=== PATIENT | male | born 1960 | race Caucasian/White ===

== ENCOUNTER 2023-07-29 11:37 | Inpatient (IN) | payer MEDICARE, OTHER ==
[~2023-07-29] VITALS: Ht 160 cm; Wt 79.8 kg
[2023-07-29 12:47] LABS: BASOPHILS % (AUTO) 0.1 % (0.0-2.0); EOSINOPHILS # (AUTO) 0.1 K/uL (0.0-0.7); EOSINOPHILS % (AUTO) 1.7 % (0.0-7.0); HEMATOCRIT 44.8 % (36.7-47.1); HEMOGLOBIN 15.3 g/dL (12.5-16.3); LYMPHOCYTES % (AUTO) 38.4 % (20.5-51.5); MEAN CORPUSCULAR HEMOGLOBIN 31.8 uug (23.8-33.4); MEAN CORPUSCULAR HGB CONC 34 g/dL (32.5-36.3); MEAN CORPUSCULAR VOLUME 93.2 fL (73.0-96.2); MONOCYTES # (AUTO) 0.8 K/uL (0.1-1.30); MONOCYTES % (AUTO) 10.7 % (0.0-11.0); NEUTROPHILS # (AUTO) 3.8 K/uL (1.8-8.9); NEUTROPHILS % (AUTO) 49.1 % (38.5-71.5); PLATELET COUNT (AUTO) 124 K/uL (152-348); RED CELL DISTRIBUTION WIDTH 14.1 % (12.1-16.2); WHITE BLOOD COUNT (AUTO) 7.7 K/uL (3.6-10.2)
[2023-07-29 12:47] LABS: *BILIRUBIN,URIN NEGATIVE (NEGATIVE); *BLOOD, URINE NEGATIVE (NEGATIVE); *CLARITY,URINE CLEAR (CLEAR); *COLOR,URINE YELLOW (YELLOW); *KETONES,URINE NEGATIVE (NEGATIVE); *PROTEIN,URINE NEGATIVE (NEGATIVE); *UROBILINOGEN,URINE 0.2 E.U./dl (NORMAL); LEUKOCYTE ESTERASE ,URINE NEGATIVE (NEGATIVE); NITRITE, URINE NEGATIVE (NEGATIVE); UGLUCOSE 2+ (NEGATIVE)
[2023-07-29 12:49] LABS: DIFFERENTIAL COMMENT 1
[2023-07-29] MEDS ORDERED: QUET50TA PO (12:54)
[2023-07-29] MEDS ORDERED: MAGN400O6 PO (12:54)
[2023-07-29] MEDS ORDERED: SENN-301 PO (12:54)
[2023-07-29] MEDS ORDERED: DOCU100C36 PO (12:54)
[2023-07-29] MEDS ORDERED: MELA10CA PO (12:54)
[2023-07-29] MEDS ORDERED: IPRA3AMP23 IH (12:54)
[2023-07-29] MEDS ORDERED: QUET25TA PO (12:54)
[2023-07-29] MEDS ORDERED: GABA-532 PO (12:54)
[2023-07-29] MEDS ORDERED: BISA10SU61 RC (12:54)
[2023-07-29] MEDS ORDERED: OXYC-470 PO (12:54)
[2023-07-29] MEDS ORDERED: IPRA-ALBUTEROL (12:54)
[2023-07-29] MEDS ORDERED: FLUT12AE20 INH (12:54)
[2023-07-29] MEDS ORDERED: VITA-287 PO (12:54)
[2023-07-29] MEDS ORDERED: NA P133E RC (12:54)
[2023-07-29] MEDS ORDERED: ACET-3117 PO ×2 (12:54)
[2023-07-29] MEDS ORDERED: BACL10TA PO (12:54)
[2023-07-29] MEDS ORDERED: CITA10TA17 PO (12:54)
[2023-07-29 13:01] LABS: ETHANOL < 3 MG/DL (0-10)
[2023-07-29 13:02] LABS: CALCIUM 8.6 mg/dL (8.5-10.1); CARBON DIOXIDE 26 mmol/L (21-32); CHLORIDE 100 mmol/L (98-107); CREATININE 0.8 mg/dL (0.6-1.3); GLUCOSE 244 mg/dL (74-106); POTASSIUM 3.6 mmol/L (3.5-5.1); SODIUM SERUM 135 mmol/L (136-145); UREA NITROGEN, BLOOD 13 mg/dL (7-18)
[2023-07-29 13:03] LABS: *AMPHETAMINE, URINE NEGATIVE (NEGATIVE); *BARBITURATE, URINE NEGATIVE (NEGATIVE); *BENZODIAZEPINE, URINE NEGATIVE (NEGATIVE); *CANNABINOID, URINE NEGATIVE (NEGATIVE); *COCCAINE, URINE NEGATIVE (NEGATIVE); *OPIATE, URINE NEGATIVE (NEGATIVE); *PHENCYCLIDINE SCREEN,URINE NEGATIVE (NEGATIVE)
[2023-07-29 13:04] LABS: FENTANYL, URINE NEGATIVE (NEGATIVE)
[2023-07-29 13:18] LABS: ALANINE AMINOTRANSFERASE 19 U/L (16-63); ALBUMIN 3.7 g/dL (3.4-5.0); ALKALINE PHOSPHATASE 146 U/L (50-136); BILIRUBIN,TOTAL 0.3 mg/dL (0.2-1.0); NT-PRO BNP 164 pg/mL (0-125); TOTAL PROTEIN, SERUM 7.8 g/dL (6.4-8.2)
[2023-07-29 13:26] LABS: BACTERIA,URINE NONE SEEN /HPF (NONE SEEN); RBC,URINE NONE SEEN /HPF (0-3); SQUAMOUS EPITHELIAL CELL,UR FEW /HPF (NONE SEEN); WBC,URINE 0-3 /HPF (0-3)
[2023-07-29 13:28] LABS: ACETAMINOPHEN < 2.0 ug/mL (10-30); URIC ACID 4.1 mg/dL (3.5-7.2)
[2023-07-29 14:04] LABS: ASPARTATE AMINOTRANSFERASE 10 U/L (15-37)
[2023-07-29] MEDS ORDERED: SWABABLE VALVE TRANSFER SET EA MC ONE (14:36)
[2023-07-29] MEDS ORDERED: IV NORMAL SALINE 250 ML IV ONE (14:36)
[2023-07-29] MEDS ORDERED: IOHEXOL 350 100 ML INFUS..BTL ONE (14:36)
[2023-07-29] MEDS ORDERED: AZITHROMYCIN IV 500 MG in IV DEXTROSE 5% 250 ML IV ONE (16:45)
[2023-07-29] MEDS ORDERED: AZITHROMYCIN 500MG/ D5W 250ML IVPB **ER PYXIS ONLY IV ONE (16:53)
[2023-07-29] MEDS ORDERED: CLONIDINE HCL 0.1 MG TABLET ONE (18:23)
[2023-07-29] MEDS ORDERED: CLONIDINE HCL 0.1 MG TABLET PO ONE (18:30)
[2023-07-29] MEDS ORDERED: ACETAMINOPHEN 325 MG TABLET PO PRN (19:15)
[2023-07-29] MEDS ORDERED: BISACODYL 10 MG SUPP.RECT RC PRN (19:15)
[2023-07-29] MEDS ORDERED: ONDANSETRON 4 MG/2 ML VIAL IV PRN (19:15)
[2023-07-29] MEDS ORDERED: CEFTRIAXONE 1 G in IV DEXTROSE 5% 50 ML IV SCH (19:15)
[2023-07-29] MEDS ORDERED: MAGNESIUM HYDROXIDE 30 ML LIQUID UDC PO PRN (19:15)
[2023-07-29 20:00] VITALS: BP 150/70; TEMP 97.9; O2SAT 95
[2023-07-29] MEDS: QUETIAPINE FUMARATE 25 MG TABLET PO SCH (21:18)
[2023-07-29] MEDS: ENOXAPARIN SODIUM 40 MG/0.4 ML DISP.SYRIN SQ SCH (21:29)
[2023-07-29] MEDS ORDERED: CEFTRIAXONE /D5W 50ML IVPB **ER PYXIS IV ONE (21:51)
[2023-07-30] VITALS: BP 114/64; TEMP 97.7; O2SAT 96
[2023-07-30] MEDS: BACLOFEN 10 MG TABLET PO SCH ×4 (00:19→17:06)
[2023-07-30 04:00] VITALS: BP 106/67; TEMP 97.9; O2SAT 95
[2023-07-30 06:29] LABS: BASOPHILS % (AUTO) 0.5 % (0.0-2.0); EOSINOPHILS # (AUTO) 0.1 K/uL (0.0-0.7); HEMATOCRIT 44.8 % (36.7-47.1); HEMOGLOBIN 15.2 g/dL (12.5-16.3); MEAN CORPUSCULAR HEMOGLOBIN 31.3 uug (23.8-33.4); MEAN CORPUSCULAR HGB CONC 34 g/dL (32.5-36.3); MEAN CORPUSCULAR VOLUME 92.2 fL (73.0-96.2); MONOCYTES # (AUTO) 0.6 K/uL (0.1-1.30); MONOCYTES % (AUTO) 12.7 % (0.0-11.0); NEUTROPHILS # (AUTO) 2.1 K/uL (1.8-8.9); NEUTROPHILS % (AUTO) 42.8 % (38.5-71.5); PLATELET COUNT (AUTO) 117 K/uL (152-348); RED BLOOD CELL COUNT(AUTO) 4.85 MIL/uL (4.06-5.63); RED CELL DISTRIBUTION WIDTH 14.3 % (12.1-16.2); WHITE BLOOD COUNT (AUTO) 4.9 K/uL (3.6-10.2)
[2023-07-30 06:48] LABS: CALCIUM 8.4 mg/dL (8.5-10.1); DIFFERENTIAL COMMENT 1; MAGNESIUM 1.9 mg/dL (1.8-2.4); PHOSPHOROUS 3.9 mg/dL (2.5-4.9); POTASSIUM 3.7 mmol/L (3.5-5.1)
[2023-07-30 08:48] VITALS: BP 118/56; TEMP 97.6; O2SAT 98
[2023-07-30] MEDS: CITALOPRAM 10 MG TABLET PO SCH (09:02)
[2023-07-30] MEDS: VITAMIN B COMPLEX 1 TABLET PO SCH (09:02)
[2023-07-30] MEDS: DOCUSATE SODIUM 100 MG CAPSULE PO SCH ×2 (09:02→17:06)
[2023-07-30 14:03] VITALS: TEMP 97.8
[2023-07-30 15:26] VITALS: TEMP 97.5
[2023-07-30] MEDS: QUETIAPINE FUMARATE 25 MG TABLET PO SCH ×2 (17:06→20:26)
[2023-07-30] MEDS: AZITHROMYCIN IV 250 MG in IV DEXTROSE 5% 250 ML IV SCH (17:06)
[2023-07-30] MEDS: SENNOSIDES/DOCUSATE SODIUM TABLET PO SCH (17:06)
[2023-07-30] MEDS ORDERED: AZITHROMYCIN IV 250 MG in IV DEXTROSE 5% 250 ML IV SCH (19:15)
[2023-07-30] MEDS: ATORVASTATIN 20 MG TABLET PO SCH (20:26)
[2023-07-30] MEDS: ENOXAPARIN SODIUM 40 MG/0.4 ML DISP.SYRIN SQ SCH (20:26)
[2023-07-30] MEDS: GABAPENTIN 300 MG CAPSULE PO SCH (20:29)
[2023-07-30 21:00] VITALS: BP 128/66; TEMP 98.1; O2SAT 94
[2023-07-30] MEDS: MUPIROCIN 2% OINT 22 GM TUBE NS SCH (22:00)
[2023-07-30] MEDS: CEFTRIAXONE 1 G in IV DEXTROSE 5% 50 ML IV SCH (22:00)
[2023-07-31] VITALS: BP 114/62; TEMP 97.9; O2SAT 100
[2023-07-31] MEDS: BACLOFEN 10 MG TABLET PO SCH ×4 (00:16→17:07)
[2023-07-31 04:00] VITALS: BP 119/57; TEMP 98.3; O2SAT 97
[2023-07-31 06:31] LABS: BASOPHILS % (AUTO) 0.5 % (0.0-2.0); EOSINOPHILS # (AUTO) 0.2 K/uL (0.0-0.7); HEMATOCRIT 46.9 % (36.7-47.1); LYMPHOCYTES # (AUTO) 1.7 K/uL (0.8-4.8); LYMPHOCYTES % (AUTO) 28.7 % (20.5-51.5); MEAN CORPUSCULAR HEMOGLOBIN 31.8 uug (23.8-33.4); MEAN CORPUSCULAR HGB CONC 34 g/dL (32.5-36.3); MONOCYTES # (AUTO) 0.8 K/uL (0.1-1.30); MONOCYTES % (AUTO) 13.2 % (0.0-11.0); NEUTROPHILS # (AUTO) 3.2 K/uL (1.8-8.9); NEUTROPHILS % (AUTO) 54.6 % (38.5-71.5); PLATELET COUNT (AUTO) 126 K/uL (152-348); RED BLOOD CELL COUNT(AUTO) 5.04 MIL/uL (4.06-5.63); RED CELL DISTRIBUTION WIDTH 14.1 % (12.1-16.2); WHITE BLOOD COUNT (AUTO) 5.9 K/uL (3.6-10.2)
[2023-07-31 06:52] LABS: DIFFERENTIAL COMMENT 1
[2023-07-31 07:05] LABS: CALCIUM 8.7 mg/dL (8.5-10.1); CREATININE 0.9 mg/dL (0.6-1.3); MAGNESIUM 1.9 mg/dL (1.8-2.4); PHOSPHOROUS 3.5 mg/dL (2.5-4.9); POTASSIUM 3.8 mmol/L (3.5-5.1)
[2023-07-31] MEDS: MUPIROCIN 2% OINT 22 GM TUBE NS SCH ×2 (08:38→20:53)
[2023-07-31] MEDS: CITALOPRAM 10 MG TABLET PO SCH (08:38)
[2023-07-31] MEDS: DOCUSATE SODIUM 100 MG CAPSULE PO SCH ×2 (08:38→16:54)
[2023-07-31] MEDS: GABAPENTIN 300 MG CAPSULE PO SCH ×3 (08:38→16:54)
[2023-07-31] MEDS: VITAMIN B COMPLEX 1 TABLET PO SCH (08:39)
[2023-07-31] MEDS ORDERED: ASPI81TA31 PO (09:42)
[2023-07-31] MEDS ORDERED: ATOR20TA PO (09:42)
[2023-07-31 16:13] VITALS: BP 164/74; TEMP 98; O2SAT 100
[2023-07-31] MEDS: AZITHROMYCIN IV 250 MG in IV DEXTROSE 5% 250 ML IV SCH (16:53)
[2023-07-31] MEDS: QUETIAPINE FUMARATE 25 MG TABLET PO SCH ×2 (17:07→20:51)
[2023-07-31] MEDS: SENNOSIDES/DOCUSATE SODIUM TABLET PO SCH (17:07)
[2023-07-31 17:14] VITALS: BP 159/79; TEMP 98; O2SAT 100
[2023-07-31 19:30] VITALS: BP 150/63; TEMP 98.9; O2SAT 95
[2023-07-31] MEDS: ATORVASTATIN 20 MG TABLET PO SCH (20:51)
[2023-07-31] MEDS: ENOXAPARIN SODIUM 40 MG/0.4 ML DISP.SYRIN SQ SCH (20:55)
[2023-07-31] MEDS: CEFTRIAXONE 1 G in IV DEXTROSE 5% 50 ML IV SCH (21:43)
[2023-08-01] MEDS: BACLOFEN 10 MG TABLET PO SCH ×5 (00:11→23:08)
[2023-08-01 04:00] VITALS: BP 149/60; TEMP 98.1; O2SAT 98
[2023-08-01] MEDS: DOCUSATE SODIUM 100 MG CAPSULE PO SCH ×2 (09:00→17:00)
[2023-08-01] MEDS: VITAMIN B COMPLEX 1 TABLET PO SCH (09:20)
[2023-08-01] MEDS: CITALOPRAM 10 MG TABLET PO SCH (09:20)
[2023-08-01] MEDS: GABAPENTIN 300 MG CAPSULE PO SCH ×3 (09:20→17:30)
[2023-08-01] MEDS: MUPIROCIN 2% OINT 22 GM TUBE NS SCH ×2 (09:20→21:23)
[2023-08-01] MEDS ORDERED: LISI-782 PO (10:25)
[2023-08-01 12:00] VITALS: BP 153/81; TEMP 98.1; O2SAT 98
[2023-08-01] MEDS: LISINOPRIL 5 MG TABLET PO SCH (12:39)
[2023-08-01 16:19] VITALS: BP 128/59; TEMP 98.2; O2SAT 95
[2023-08-01] MEDS: SENNOSIDES/DOCUSATE SODIUM TABLET PO SCH (17:30)
[2023-08-01] MEDS: QUETIAPINE FUMARATE 25 MG TABLET PO SCH ×2 (17:30→21:21)
[2023-08-01] MEDS: AZITHROMYCIN IV 250 MG in IV DEXTROSE 5% 250 ML IV SCH (17:30)
[2023-08-01 20:00] VITALS: BP 101/66; TEMP 98; O2SAT 97
[2023-08-01] MEDS: ATORVASTATIN 20 MG TABLET PO SCH (21:21)
[2023-08-01] MEDS: ENOXAPARIN SODIUM 40 MG/0.4 ML DISP.SYRIN SQ SCH (21:25)
[2023-08-01] MEDS: CEFTRIAXONE 1 G in IV DEXTROSE 5% 50 ML IV SCH (21:52)
[2023-08-02 04:00] VITALS: BP 111/59; TEMP 98.2; O2SAT 96
[2023-08-02] MEDS: BACLOFEN 10 MG TABLET PO SCH ×2 (05:32→12:05)
[2023-08-02] MEDS: VITAMIN B COMPLEX 1 TABLET PO SCH (08:32)
[2023-08-02] MEDS: GABAPENTIN 300 MG CAPSULE PO SCH ×2 (08:32→12:05)
[2023-08-02] MEDS: MUPIROCIN 2% OINT 22 GM TUBE NS SCH (08:32)
[2023-08-02] MEDS: LISINOPRIL 5 MG TABLET PO SCH (08:32)
[2023-08-02] MEDS: CITALOPRAM 10 MG TABLET PO SCH (08:32)
[2023-08-02] MEDS: DOCUSATE SODIUM 100 MG CAPSULE PO SCH (08:32)
[2023-08-02 10:43] VITALS: BP 117/62; TEMP 98; O2SAT 94
== END 2023-08-02 12:40 | DRG 184 ==
LOC: ER 11:37 → TELE3 19:37 → MEDSURG3 07-31 13:35
PROVIDERS: ADMIT Nurse Practitioner Acute Care; ATTEND Nurse Practitioner Acute Care
DX: S22.41XA Multiple fractures of ribs, right side, initial encounter for closed fracture (principal); E87.1 Hypo-osmolality and hyponatremia; I69.354 Hemiplegia and hemiparesis following cerebral infarction affecting left non-dominant side; R07.89 Other chest pain; E78.5 Hyperlipidemia, unspecified; F32.A Depression, unspecified; F41.9 Anxiety disorder, unspecified; Z79.82 Long term (current) use of aspirin; Z79.899 Other long term (current) drug therapy; R73.9 Hyperglycemia, unspecified; Z79.51 Long term (current) use of inhaled steroids; R91.8 Other nonspecific abnormal finding of lung field; F10.21 Alcohol dependence, in remission; V89.2XXA Person injured in unspecified motor-vehicle accident, traffic, initial encounter; Y93.9 Activity, unspecified; Y92.89 Other specified places as the place of occurrence of the external cause
CPT/HCPCS: 36415; 70450; 71045; 71275; 83605; 83735; 84100; 84484; 84550; 85025; 87040; 93307; A4606; A4663; G0378; G0480; J0456; J0696; J1650; J7050; Q9967